=== PATIENT | female | born 1970 | race Caucasian/White ===

== ENCOUNTER 2022-03-21 19:06 | Emergency (ER) | payer OTHER, MEDICAID ==
[~2022-03-21] VITALS: Ht 165.1 cm; Wt 54.9 kg
[2022-03-21 19:16] VITALS: BP 112/79
--- NOTE | 2022-03-21 19:25 | NUR ---
DR HERNANDEZ AT BEDSIDE FOR EXAM
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
[2022-03-21] MEDS: KETOROLAC 30 MG/ML VIAL IM ONE (21:06)
[2022-03-21 21:50] VITALS: BP 112/79
--- NOTE | 2022-03-21 21:50 | NUR ---
Patient discharged with v/s stable. Written and verbal after care instructions given and explained. Patient verbalized understanding. Ambulatory with steady gait. All questions addressed prior to discharge. Advised to follow up with PMD.
== END 2022-03-21 21:50 | disposition home or self-care (01) ==
LOC: MED 19:06
DX: S60.212A Contusion of left wrist, initial encounter (principal); S20.212A Contusion of left front wall of thorax, initial encounter; S80.11XA Contusion of right lower leg, initial encounter; V89.2XXA Person injured in unspecified motor-vehicle accident, traffic, initial encounter; Y93.89 Activity, other specified; Y92.89 Other specified places as the place of occurrence of the external cause; Y99.8 Other external cause status
CPT/HCPCS: 71045; 73110; 73590; 96372; 99284; J1885